=== PATIENT | female | born 1970 | race Caucasian/White ===

== ENCOUNTER 2025-02-16 21:17 | Emergency (ER) | payer MEDICAID ==
[~2025-02-16] VITALS: Ht 160 cm; Wt 105.0 kg
[2025-02-16 21:32] VITALS: RESP 18; O2SAT 99
[2025-02-16 22:04] LABS: BASOPHILS % 0.6 % (0.0-2.0); EOSINOPHILS % 2.0 % (0.0-5.0); HEMATOCRIT. 39.8 % (36.0-48.0); HEMOGLOBIN. 13.2 g/dL (12.0-16.0); LYMPHOCYTES % 37.7 % (20.0-50.0); MEAN PLATELET VOLUME 9.6 fl (7.4-10.4); MONOCYTES % 5.6 % (2.0-8.0); NEUTROPHILS % 54.1 % (40.0-76.0); PLATELET 195 x1000/uL (130-400); RED BLOOD CELL COUNT 4.72 mill/uL (4.2-5.4); RED CELL DISTRIBUTION WIDTH 13.3 % (11.6-14.6)
[2025-02-16 22:26] LABS: CREATININE 0.6 mg/dL (0.6-1.0)
[2025-02-16 22:27] LABS: UREA NITROGEN BLOOD 11 mg/dL (9-23)
[2025-02-16 22:28] LABS: ASPARTATE AMINOTRANSFERASE 26 IU/L (<34)
[2025-02-16 22:29] LABS: BILIRUBIN DIRECT 0.1 mg/dL (<=3.0); BILIRUBIN TOTAL 0.4 mg/dL (0.1-1.0); PROTEIN TOTAL 6.7 g/dL (6.0-8.3)
[2025-02-16] MEDS: IBUPROFEN 600MG TABLET PO ONE (22:44)
[2025-02-16 23:12] VITALS: BP 172/79; PULSE 63; TEMP 36.7; O2SAT 96
== END 2025-02-16 23:16 | disposition home or self-care (01) ==
LOC: ER 21:17
DX: R51.9 Headache, unspecified (principal); E11.649 Type 2 diabetes mellitus with hypoglycemia without coma; E78.00 Pure hypercholesterolemia, unspecified; I10 Essential (primary) hypertension; Z98.890 Other specified postprocedural states
CPT/HCPCS: 36415; 80048; 80076; 82962; 85025; 99283